=== PATIENT | male | born 1985 | race American Indian/Alaskan Native ===

== ENCOUNTER 2017-02-23 23:17 | Emergency (ER) | payer MEDICAID ==
[2017-02-23 23:18] VITALS: BMI 21.5
[2017-02-23 23:21] VITALS: TEMP 98.7
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
[2017-02-23 23:44] LABS: BASO # 0.1 K/uL (0.0-0.2); BASO % 0.7 % (0.0-2.0); EOS # 0.6 K/uL (0.0-0.7); EOS % 7.2 % (0.0-4.0); HEMOGLOBIN 12.6 g/dL (12.0-18.0); LYMPH # 3.1 K/uL (1.0-4.3); LYMPH % 37.8 % (20.0-40.0); MEAN CELL VOLUME 74.2 fl (80.0-94.0); MEAN CORPUSCULAR HEMOGLOBIN 23.9 pg (27.0-31.0); MEAN CORPUSCULAR HGB CONC 32.3 g/dL (33.0-37.0); MEAN PLATELET VOLUME 8.8 fl (7.2-11.7); MONO # 0.7 K/uL (0.0-0.8); MONO % 8.6 % (0.0-10.0); NEUT # 3.7 K/uL (1.8-7.0); NEUT % 45.7 % (50.0-75.0); NRBC % 0.1 % (0.0-0.0); RBC 5.28 Mil/uL (4.40-5.90); RED CELL DISTRIBUTION WIDTH 14.6 % (11.5-14.5); WHITE BLOOD COUNT 8.1 K/uL (4.8-10.8)
[2017-02-23 23:53] LABS: ALB/GLOB RATIO 1.1 (1.0-2.1); ALBUMIN 4.2 g/dL (3.5-5.0); ALT/SGPT 35 U/L (21-72); AST/SGOT 40 U/L (17-59); BLOOD UREA NITROGEN 11 mg/dl (9-20); CALCIUM 8.8 mg/dL (8.4-10.2); GFR AFRICAN-AMERICAN > 60; GFR NON-AFRICAN AMERICAN > 60
--- NOTE | 2017-02-24 00:20 | CT ---
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 This CT exam was performed using one or more of the following dose reduction techniques: automated exposure control, adjustment of the mA and/or kV according to patient size, and/or use of iterative reconstruction technique. Coronal and sagittal reformatted images were created and reviewed. COMPARISON: CT - HEAD W/O CONTRAST 07/18/2016 3:05:27 PM FINDINGS: Limitations: Motion artifact - mild. Brain: No definite intracranial hemorrhage. No mass. Encephalomalacia/cystic changes within LEFT parietal region. Several scattered foci of decreased attenuation within periventricular/subcortical white matter. No definite edema. Ventricles: LEFT ventricular shunt, stable in position and appearance. Enlargement of LEFT ventricle, grossly stable. Bones/joints: No acute fracture. Soft tissues: Mild scalp swelling. Sinuses: Scattered minimal mucosal thickening. Tiny LEFT maxillary retention cyst. Mastoid air cells: No mastoid effusion. Orbits: Unremarkable as visualized. IMPRESSION: 1. No definite intracranial hemorrhage. 2. Nonspecific white matter changes. 3. Incidental/non-acute findings are described above.
--- NOTE | 2017-02-24 00:22 | CT ---
EXAM: CT Cervical Spine Without Intravenous Contrast CLINICAL HISTORY: 31 years old, male; Injury or trauma; Fall; Initial encounter; Blunt trauma; Additional info: ETOH fall TECHNIQUE: Axial computed tomography images of the cervical spine without intravenous contrast. This CT exam was performed using one or more of the following dose reduction techniques: automated exposure control, adjustment of the mA and/or kV according to patient size, and/or use of iterative reconstruction technique. Coronal and sagittal reformatted images were created and reviewed. COMPARISON: CT - CERVICAL SPINE W/O CONTRAST 07/18/2016 3:08:27 PM FINDINGS: Vertebrae: No acute fracture. Discs/spinal canal/neural foramina: No significant spinal canal stenosis. Soft tissues: Unremarkable. Lung apices: Minimal bullous changes. Tubes, lines and devices: Discontinuous shunt within soft tissues. IMPRESSION: 1. No fracture. 2. Incidental/non-acute findings are described above.
[2017-02-24 01:18] LABS: BARBITURATES, UR NEGATIVE (NEGATIVE); BENZODIAZEPINES, UR NEGATIVE (NEGATIVE); OPIATES, UR NEGATIVE (NEGATIVE); PHENCYCLIDINE, UR POSITIVE (NEGATIVE)
[2017-02-24 02:08] VITALS: BP 132/78; PULSE 86; RESP 16; O2SAT 98
== END 2017-02-24 02:08 | disposition home or self-care (01) ==
LOC: H.ER 23:17
DX: S09.90XA Unspecified injury of head, initial encounter (principal); W19.XXXA Unspecified fall, initial encounter; Y92.89 Other specified places as the place of occurrence of the external cause; F10.129 Alcohol abuse with intoxication, unspecified; Z98.2 Presence of cerebrospinal fluid drainage device

== ENCOUNTER 2017-04-04 04:03 | Emergency (ER) | payer MEDICAID ==
[2017-04-04 04:20] VITALS: BMI 27.0
[2017-04-04 04:23] VITALS: RESP 16; TEMP 98.5
--- NOTE | 2017-04-04 04:43 | ED PDOC ---
HPI: Dental Pain/Injury Time Seen by Provider: 04/04/17 04:42 Chief Complaint (Nursing): Dental Pain Chief Complaint (Provider): gum pain History Per: Patient (32 y/o male here with dental pain x 2 weeks. Denies any fevers/chills. NO vomiting/diarrhea. Notes additional complaint of bilateral foot pain despite use of flip-flops instead of sneakers. Denies any traumatic injury.) Past Medical History Reviewed: Historical Data, Nursing Documentation, Vital Signs Vital Signs: Last Vital Signs Temp 98.5 F 04/04/17 04:21 Pulse 100 H 04/04/17 04:21 Resp 16 04/04/17 04:21 BP 133/99 H 04/04/17 04:21 Pulse Ox 98 04/04/17 04:21 - Medical History PMH: Denies: Alzheimer's Disease, Asthma, Bronchitis, COPD, Dementia, Emphysema, HIV, Migraine, Multiple Sclerosis, Parkinson's Disease, Pneumonia, Pulmonary Embolism, Chronic Kidney Disease, Seizures, Sleep Apnea, TIA - Family History Family History: States: Unknown Family Hx - Home Medications Home Medications: Ambulatory Orders Medication Instructions Recorded Chlorhexidine 0.12% [Peridex] 5 ml .ROUTE BID #1 bottle 04/04/17 Clindamycin [Cleocin] 300 mg PO Q6 #28 cap 04/04/17 - Allergies Allergies/Adverse Reactions: Allergies Allergy/AdvReac Type Severity Reaction Status Date / Time No Known Allergies Allergy Verified 04/04/17 04:20 Review of Systems ROS Statement: Except As Marked, All Systems Reviewed And Found Negative ENT: Positive for: Mouth Pain Physical Exam - Reviewed Nursing Documentation Reviewed: Yes Vital Signs Reviewed: Yes - Physical Exam Appears: Positive for: Well, Non-toxic, No Acute Distress Head Exam: Positive for: ATRAUMATIC, NORMAL INSPECTION, NORMOCEPHALIC Skin: Positive for: Normal Color, Warm, DRY Eye Exam: Positive for: EOMI, Normal appearance, PERRL ENT: Positive for: Pharynx Is (erythema noted posterior pharynx). Negative for : Normal ENT Inspection Neck: Positive for: Normal, Painless ROM Cardiovascular/Chest: Positive for: Regular Rate, Rhythm Respiratory: Positive for: CNT, Normal Breath Sounds Gastrointestinal/Abdominal: Positive for: Normal Exam, Bowel Sounds, Soft Back: Positive for: Normal Inspection Extremity: Positive for: Normal ROM Neurologic/Psych: Positive for: Alert, Oriented - ECG O2 Sat by Pulse Oximetry: 98 - Progress ED Course And Treament: rapid strep: neg Disposition - Clinical Impression Clinical Impression: Gingivitis - Patient ED Disposition Is Patient to be Admitted: No - Disposition Disposition: Routine/Home Disposition Time: 05:20 Condition: FAIR Prescriptions: Chlorhexidine 0.12% [Peridex] 5 ml .ROUTE BID #1 bottle Clindamycin [Cleocin] 300 mg PO Q6 #28 cap Forms: [employer] ([place])
[2017-04-04 05:54] VITALS: BP 127/85; PULSE 91; O2SAT 99
== END 2017-04-04 05:50 | disposition home or self-care (01) ==
LOC: H.ER 04:03
DX: K05.10 Chronic gingivitis, plaque induced (principal)

== ENCOUNTER 2017-04-12 05:30 | Emergency (ER) | payer MEDICAID ==
[2017-04-12 05:30] VITALS: BMI 26.6
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
[2017-04-12 05:50] VITALS: PULSE 102; RESP 18; TEMP 99; O2SAT 96
[2017-04-12 06:07] VITALS: BP 132/86
--- NOTE | 2017-04-12 11:17 | RAD ---
HISTORY: trauma COMPARISON: Comparison made with prior radiographs of the thoracic spine 08/30/2015 FINDINGS: BONES: No acute compression fractures no retropulsed fragments. Minor chronic appearing anterior stature loss of a few mid thoracic segments again noted. DISC SPACES: Minor multilevel degenerative spondylosis with disc space narrowing and mild endplate eburnation seen at several midthoracic levels. TheNormal. SOFT TISSUES: Normal. OTHER FINDINGS: None. IMPRESSION: No acute compression fractures. Minor chronic anterior stature loss of a few mid thoracic segments with minor degenerative spondylosis as detailed above.
== END 2017-04-12 06:07 | disposition home or self-care (01) ==
LOC: H.ER 05:30
DX: Z48.02 Encounter for removal of sutures (principal)